=== PATIENT | male | born 1975 | race Two or more races ===

== ENCOUNTER 2020-11-02 08:00 | Emergency (ER) | payer OTHER ==
[~2020-11-02] VITALS: Ht 175.3 cm; Wt 81.6 kg
== END 2020-11-02 10:05 | disposition home or self-care (01) ==
LOC: ER 08:00
DX: L03.012 Cellulitis of left finger (principal); M79.644 Pain in right finger(s)

== ENCOUNTER 2021-03-04 16:44 | Emergency (ER) | payer OTHER ==
[~2021-03-04] VITALS: Ht 175.3 cm; Wt 81.6 kg
== END 2021-03-04 20:41 | disposition home or self-care (01) ==
LOC: ER 16:44
DX: N34.2 Other urethritis (principal)